=== PATIENT | female | born 1960 | race African-American/Black ===

== ENCOUNTER → 2020-05-24 | Day surgery (SDC) | payer MEDICARE ==
[2020-05-21 13:00] LABS: BASOPHILS # (AUTO) 0.1 (0.0-0.1); BASOPHILS % 0.7 % (0.0-1.0); EOSINOPHILS # (AUTO) 0.1 (0.0-0.4); HEMATOCRIT 46.3 % (34.2-44.1); HEMOGLOBIN 14.3 g/dL (12.0-16.0); LYMPHOCYTES # (AUTO) 1.6 (1.0-3.2); LYMPHOCYTES % 24.1 % (18.0-39.1); MEAN CORPUSCULAR HEMOGLOBIN 29.9 pg (28-32); MEAN CORPUSCULAR HGB CONC 30.9 g/dL (31-35); MEAN CORPUSCULAR VOLUME 96.9 fL (81-99); MONOCYTES # (AUTO) 0.4 (0.2-0.8); MONOCYTES % 6.1 % (4.4-11.3); NEUTROPHILS # (AUTO) 4.6 (2.1-6.9); NEUTROPHILS % 67.7 % (38.7-80.0); PLATELET COUNT 203 x10e3/uL (140-360); RED BLOOD COUNT 4.78 x10e6/uL (3.6-5.1); RED CELL DISTRIBUTION WIDTH 17.5 % (11.7-14.4)
[2020-05-21 13:11] LABS: INR 0.88; PROTHROMBIN TIME 12.4 seconds (11.9-14.5)
[2020-05-21 13:20] LABS: ALBUMIN 3.8 g/dL (3.5-5.0); ALBUMIN/GLOBULIN RATIO 0.9 (0.8-2.0); ANION GAP 20.8 mmol/L (8-16); CALCIUM 8.3 mg/dL (8.4-10.2); CREATININE, SERUM 7.5 mg/dL (0.57-1.11); POTASSIUM 4.8 mmol/L (3.5-5.1)
[2020-05-24] VITALS (10 sets, daily range): BP systolic 143–159; BP diastolic 60–98
[~2020-05-24] VITALS: Ht 175.3 cm; Wt 96.2 kg
[~2020-05-24] MED LIST: ALPRAZOLAM1 MG PO; ASPIRIN81 MG PO; ATORVASTATIN CA20 MG PO; CETIRIZINE1 MG/1 ML; DIALYVITE TABL1 EACH PO; FENTANYL CITRATE/PF 100MCG/2 ML INJ ONE; FLUOXETINE HCL20 MG PO; HEPARIN SOD (PORCINE) 1000 UNIT/ML 30ML ONE; HEPARIN SOD/SOD CHLORIDE 1,000 ML ONE; IOPAMIDOL 370 MG/ML 200 ML INFUS..BTL INJ ONE; LEVOTHYROXINE50 MCG PO; LIDOCAINE HCL 2% LOCAL 20 ML VIAL ONE; LYRICA25 MG PO; MIDAZOLAM HCL 2 MG/2 ML VIAL ONE; MIDODRINE HCL2.5 MG PO; NITROGLYCERIN/D5W 200 MCG/ML 250 ML ONE; OMEPRAZOLE40 MG PO; SENSIPAR30 MG PO; SODIUM CHLORIDE 0.9% 1000ML 1,000 ML ONE; TIZANIDINE HCL4 M1 PO; TOPIRAMATE25 MG PO; VERAPAMIL HCL 2.5 MG/ML 2 ML VIAL ONE; VITAMIN C500 MG PO; ZOLPIDEM TARTRAT5 MG PO; [UNRECOGNIZED DRUG - OTHER] PO; imdur PO; renvela PO
== END | disposition home or self-care (01) ==
LOC: CATH LAB 05:59
PROVIDERS: ATTEND Internal Medicine Cardiovascular Disease
DX: I25.10 Atherosclerotic heart disease of native coronary artery without angina pectoris (principal); R94.39 Abnormal result of other cardiovascular function study; U07.1 COVID-19; I10 Essential (primary) hypertension; E78.5 Hyperlipidemia, unspecified; Z88.1 Allergy status to other antibiotic agents; Z01.812 Encounter for preprocedural laboratory examination; Z79.82 Long term (current) use of aspirin; Z68.31 Body mass index [BMI] 31.0-31.9, adult; Z82.49 Family history of ischemic heart disease and other diseases of the circulatory system; Z82.3 Family history of stroke
CPT/HCPCS: 36415; 80053; 85025; 85610; 93458; C1887; J1644; J2001; J2250; J3010; J7030; Q9967; U0002; 99152